=== PATIENT | female | born 1960 | race African-American/Black ===

== ENCOUNTER 2016-10-24 13:56 | Inpatient (IN) ==
--- NOTE | 2016-10-24 17:20 | Diag Imaging Result Document ---
PROCEDURE NAME: CHEST-2 VIEWS - 10/24/2016 FRONTAL AND LATERAL CHEST, TWO VIEWS: COMPARISON: 08/26/2015. FINDINGS: The lungs are well expanded. The heart is mildly enlarged. This is similar to the prior exam. The vessels are not distended. No pleural effusion. No pneumonia. IMPRESSION: Mild cardiomegaly.
--- NOTE | 2016-10-24 17:21 | Diag Imaging Result Document ---
PROCEDURE NAME: KUB ABDOMEN - 10/24/2016 SUPINE ABDOMEN: FINDINGS: No bowel obstruction. No organomegaly. There has been prior surgery to the lower lumbar spine. There is a left pelvic calcification consistent with a phlebolith. IMPRESSION: Negative exam.
[2016-10-24 17:23] LABS: MANUAL DIFF NEEDED? NO
[2016-10-24 17:25] LABS: BASO% 0.6 % (0.0-0.8); EOS# 0.13 X1000 (0.0-0.7); EOS% 1.1 % (0.0-10.0); HEMATOCRIT 34.5 % (37.0-47.0); HEMOGLOBIN 11.3 g/dL (12.0-16.0); IMM GRAN# 0.04 X1000 (0.0-0.04); IMM GRAN% 0.3 % (0.0-0.5); LYMPH# 3.85 X1000 (1.2-3.4); LYMPH% 32.7 % (20.5-51.1); MCHC 32.8 g/dL (33-37); MCV 88.5 FL (81-99); MONO# 0.87 X1000 (0.11-0.59); MONO% 7.4 % (1.7-9.3); MPV 8.5 FL (7.4-10.4); NEUT% 57.9 % (42.2-75.2); PLT 515 X1000 (130-400)
[2016-10-24] MEDS: PROTONIX IV SCH (17:33)
[2016-10-24] MEDS: NS 1,000 ML IV SCH (17:33)
[2016-10-24] MEDS: NICODERM PATCH TD SCH (17:33)
[2016-10-24] MEDS: SODIUM CHLORIDE 0.9% INJ SCH (17:34)
[2016-10-24 17:36] LABS: INR 0.99; PROTIME 10.4 Seconds (9.2-11.7); PTT 29.4 Seconds (22.0-36.0)
[2016-10-24 17:45] LABS: HEMOGLOBIN A1C 6.6 % (4.8-6.0)
[2016-10-24 18:04] LABS: ALBUMIN 3.9 g/dL (3.5-5.0); CALCIUM 9.4 mg/dL (8.8-10.2); POTASSIUM 4.6 mmol/L (3.5-5.1); TOTAL BILIRUBIN 0.13 mg/dL (0.20-1.00); TOTAL PROTEIN 7.8 g/dL (6.3-8.3)
--- NOTE | 2016-10-24 18:58 | HISTORY AND PHYSICAL ---
CHIEF COMPLAINT: Abdominal pain, nausea, vomiting and diarrhea. HISTORY OF PRESENT ILLNESS: Ms. Morataya is a 56-year-old, patient who was in her usual state of health until Thursday when patient got sick complaining of abdominal discomfort, nausea, vomiting and diarrhea. The patient claims she vomited multiple times. Every time she tries to eat or drink she was throwing up. She was not able to tolerate her medications. The patient was feeling weak, at times dizzy. The patient did have diarrhea multiple times. No blood or mucus in the stool. No hematemesis or melena. The patient lost significant weight. I evaluated patient in my office. Clinically patient was dehydrated. She lost significant weight. I was concerned about acute renal failure and I decided to admit the patient for further care. Initially patient was reluctant but then she agreed to be admitted. Nobody else in the family is sick with a similar illness. The patient had mild renal insufficiency six weeks ago. I advised her to come for a followup in 10 days but patient did not. The patient is noncompliant to diet and medication. The patient did have chills but no high-grade fever. She does have a dull headache. No typical chest pain, palpitations, orthopnea or PND. Vague abdominal discomfort. No dysphagia or odynophagia. Denied urinary frequency, urgency, dysuria. No vaginal discharge, spotting, bleeding. Denied any leg swelling. The patient does have chronic low back pain being followed up by pain clinic. The patient claims she did not run out of her pain medication. No major depression. No heat or cold intolerance. At times polyuria, polydipsia. No further history available at this time. Claims to be under stress. ALLERGIES: No known drug allergy. HOME MEDICATIONS: Lotrel, Lipitor, Invokana, Klonopin, Flexeril, Neurontin, [place]. It is not updated yet. PAST MEDICAL HISTORY: Longstanding diabetes on insulin, hypertension, hyperlipidemia, gastritis, chronic low back pain, muscle spasm. PERSONAL HISTORY: . Lives with the . The patient does smoke. Denied alcohol or substance abuse. FAMILY HISTORY: Father of a mass behind his heart. Mother with stroke and hypertension. The patient has a strong family history of hypertension. REVIEW OF SYSTEMS: As per HPI. Otherwise unobtainable. PHYSICAL EXAMINATION: GENERAL: Middle-aged, patient, in mild distress. The rest is from the chart. VITAL SIGNS: Blood pressure 124/74, pulse 54, respiration 14, temperature 98.4 degrees. SKIN: Dry turgor. No rash or petechiae. HEENT: Head atraumatic, normocephalic. [place] conjunctivae. Anicteric sclerae. Extraocular muscle movement normal. Fundus cannot be penetrated. Good oral hygiene. No tonsillopharyngeal congestion or exudate. Ears and nose benign. NECK: Supple. No JVD, thyromegaly or lymphadenopathy. CHEST: Bilateral good air entry present. Few basal crepitations. No rales. CARDIOVASCULAR: S1 and S2 heard. No gallop or thrill. ABDOMEN: Soft, globular. Bowel sounds present. No organomegaly or mass. EXTREMITIES: No cyanosis, clubbing. No acute DVT. CENTRAL NERVOUS SYSTEM: Alert, awake, able to move all 4 limbs. Tenderness at the lumbosacral spine. LAB DATA: Sodium 135, potassium 4.6, BUN 46, creatinine 2.7. Hemoglobin A1c 6.6, amylase and lipase were normal, PT and PTT normal, CBC mild leukocytosis, platelet count 515,000, hemoglobin 11.3, hematocrit 34.5. CONSIDERATION: 1. Acute gastroenteritis. 2. Acute kidney injury. 3. Diabetes mellitus. 4. Hypertension. 5. Chronic low back pain. PLAN: We are going to do stool workup. Urinalysis result is pending. Close observation. IV hydration. Overall plan discussed at length with the patient. She is in agreement. Smoking cessation. Monitor blood pressure. We will continue home medicines. Dr. Mason will see the patient over the weekend. cc: Domenic Ornelas MD
[2016-10-25] MEDS: HUMALOG SUBQ SCH ×5 (01:29→23:10)
[2016-10-25] MEDS: NS 1,000 ML IV SCH ×3 (03:04→17:10)
[2016-10-25 05:41] LABS: MANUAL DIFF NEEDED? NO
[2016-10-25 05:41] LABS: URINE MICRO REVIEW NEEDED? NO; URINE SOURCE CLEAN CATCH
[2016-10-25 05:47] LABS: BILIRUBIN URINE NEGATIVE (NEGATIVE); BLOOD URINE NEGATIVE (NEGATIVE); COLOR STRAW; GLUCOSE URINE NEGATIVE (NEGATIVE); LEUKOCYTES URINE NEGATIVE (NEGATIVE); NITRITE URINE NEGATIVE (NEGATIVE); PH URINE 5.5; PROTEIN URINE 100 mg/dL (NEGATIVE); SP GRAVITY URINE 1.005; TURBIDITY URINE CLEAR (CLEAR); UR EPITHELIAL CELLS <10 /HPF (<10); URINE BACTERIA NEGATIVE /HPF; URINE RBC <10 /HPF (<10); URINE WBC <10 /HPF (<10); UROBILINOGEN URINE NORMAL (NORMAL)
[2016-10-25 05:49] LABS: BASO% 0.6 % (0.0-0.8); EOS# 0.24 X1000 (0.0-0.7); EOS% 2.2 % (0.0-10.0); HEMATOCRIT 35.1 % (37.0-47.0); HEMOGLOBIN 11.5 g/dL (12.0-16.0); IMM GRAN# 0.03 X1000 (0.0-0.04); IMM GRAN% 0.3 % (0.0-0.5); LYMPH% 46.9 % (20.5-51.1); MCHC 32.8 g/dL (33-37); MCV 88.6 FL (81-99); MONO# 0.84 X1000 (0.11-0.59); MONO% 7.7 % (1.7-9.3); MPV 8.9 FL (7.4-10.4); NEUT% 42.3 % (42.2-75.2); PLT 488 X1000 (130-400); RBC 3.96 XMIL (4.2-5.4)
[2016-10-25 06:06] LABS: ALBUMIN 3.8 g/dL (3.5-5.0); CALCIUM 9.4 mg/dL (8.8-10.2); POTASSIUM 4.5 mmol/L (3.5-5.1); TOTAL BILIRUBIN 0.21 mg/dL (0.20-1.00); TOTAL PROTEIN 7.5 g/dL (6.3-8.3)
[2016-10-25] MEDS: NICODERM PATCH TD SCH (09:00)
--- NOTE | 2016-10-25 13:22 | PROGRESS NOTE ---
DATE: 10/25/[address] Ornelas. SUBJECTIVE: Interval history was reviewed. She was admitted yesterday with nausea, vomiting abdominal cramps, diarrhea. She was profoundly dehydrated. Patient has been ambulating very well. Since she has been in the hospital, there are no episodes of diarrhea, nausea and vomiting. She has been on IV fluids 125 mL an hour. She was profoundly dehydrated. PAST MEDICAL HISTORY, PAST SURGICAL HISTORY, MEDICINES: Reviewed. OBJECTIVE: Vital Signs: On examination, afebrile. Heart rate is 48, blood pressure is stable on room air satting 100%. General: Patient is out of the bed. Family was there. HEENT: Exam within normal limits. Dry mucous membranes. Neck: Supple. No lymphadenopathy. Chest: Clear to auscultation. Heart: Sounds are regular. Abdomen: Belly is soft, nontender. No signs of peritonitis. Extremities: No peripheral edema, cyanosis. Neurological: No obvious neurological deficits noted. LABS/INVESTIGATIONS: CBC: White cell count 10, hematocrit 35, platelet count 488. SMA 7: Potassium 4.5, chloride 108, BUN 40, creatinine 2.6. LFTs were normal. Urinalysis is clear and stools are pending. ASSESSMENT AND PLAN: 1. Dehydration due to gastroenteritis, stable, awaiting stool studies. 2. Azotemia. Normal baseline creatinine is 1.0. Continue on intravenous fluids. Follow up on basic metabolic panel in the morning. 3. Chronic nicotine abuse. Nicotine patch. 4. Gastrointestinal prophylaxis with Protonix. 5. Type 2 diabetes on Invokana. We will hold the medications until renal function tests come back normal. DISPOSITION: The patient wants to go home. I did discuss that creatinine is still high. Continue the IV fluids. Follow up on orthostatic blood pressure and SMA 7 in the morning. We will continue to hold the home medications, which includes Invokana, metformin, except hydrocodone and we will follow up. Discussed the plan of care with the patient and the family. LEVEL OF CARE: 35 minutes. cc: MD Domenic Delong MD
[2016-10-25] MEDS: NORCO-7.5 PO SCH (17:12)
[2016-10-25] MEDS: PROTONIX IV SCH (17:13)
[2016-10-25] MEDS: SODIUM CHLORIDE 0.9% INJ SCH (17:13)
[2016-10-26] MEDS: NS 1,000 ML IV SCH ×2 (05:34→16:54)
[2016-10-26 05:53] LABS: MANUAL DIFF NEEDED? NO
[2016-10-26 05:59] LABS: BASO% 0.5 % (0.0-0.8); EOS% 2.1 % (0.0-10.0); IMM GRAN# 0.02 X1000 (0.0-0.04); IMM GRAN% 0.2 % (0.0-0.5); LYMPH# 3.41 X1000 (1.2-3.4); LYMPH% 36.4 % (20.5-51.1); MCH 29.8 PG (27-31); MCHC 33.3 g/dL (33-37); MCV 89.3 FL (81-99); MONO% 10.7 % (1.7-9.3); MPV 9.1 FL (7.4-10.4); NEUT% 50.1 % (42.2-75.2); PLT 410 X1000 (130-400); RBC 3.36 XMIL (4.2-5.4)
[2016-10-26 06:17] LABS: CALCIUM 8.5 mg/dL (8.8-10.2); POTASSIUM 4.7 mmol/L (3.5-5.1)
[2016-10-26 06:21] LABS: HEMOGLOBIN A1C 6.5 % (4.8-6.0)
[2016-10-26] MEDS: HUMALOG SUBQ SCH ×3 (06:25→16:11)
[2016-10-26] MEDS: NICODERM PATCH TD SCH (09:40)
[2016-10-26] MEDS: NORCO-7.5 PO SCH ×4 (09:42→17:00)
--- NOTE | 2016-10-26 15:12 | PROGRESS NOTE ---
DATE: 10/26/2016 SUBJECTIVE: Patient is anxious to go home. Ambulating very well without dizziness. REVIEW OF SYSTEMS: No GI symptoms, nausea, vomiting, diarrhea. PHYSICAL EXAMINATION: Vital Signs: Stable. Blood pressure is running high. HEENT: Within normal limits. Neck: Supple. No lymphadenopathy. Chest: Clear. Heart: Sounds are regular. Belly: Soft, nontender. Good bowel sounds. No masses palpable. Extremities: No edema, cyanosis, clubbing. Neuro: Nonfocal. INVESTIGATIONS: CBC white cell count 9.3, hematocrit 30, platelets 410,000. SMA 7 sodium 142, potassium 4.7, chloride 112, BUN 30, creatinine 2.1. A1c 6.5, calcium 8.5. Urinalysis is clear. ASSESSMENT AND PLAN: 1. Gastroenteritis improving. 2. Azotemia prerenal. Continue IV fluids, slowly improving. Advanced the diabetic diet. 3. Chronic nicotine abuse on Nicotrol patches. Once the creatinine comes back normal will reinstate her home medicines. Hopefully will be discharged in the morning. Check the SMA [address] Ornelas is going to follow up. LEVEL OF DOCUMENTATION: 25 minutes. cc: MD Domenic Delong MD
[2016-10-26] MEDS ORDERED: LIPITOR PO SCH (21:00)
[2016-10-26] MEDS: PROTONIX IV SCH (21:43)
[2016-10-26] MEDS: NORVASC PO SCH (21:43)
[2016-10-26] MEDS: KLONOPIN PO SCH (21:44)
[2016-10-27] MEDS: HUMALOG SUBQ SCH ×4 (05:06→16:30)
[2016-10-27] MEDS: NS 1,000 ML IV SCH ×2 (05:06→05:20)
[2016-10-27] MEDS: SODIUM CHLORIDE 0.9% INJ SCH ×2 (05:06→17:03)
[2016-10-27] MEDS: CATAPRES PO PRN ×3 (05:20→09:08)
[2016-10-27 05:37] LABS: MANUAL DIFF NEEDED? NO
[2016-10-27 05:41] LABS: BASO% 0.6 % (0.0-0.8); EOS# 0.24 X1000 (0.0-0.7); EOS% 2.5 % (0.0-10.0); HEMOGLOBIN 11.4 g/dL (12.0-16.0); IMM GRAN# 0.03 X1000 (0.0-0.04); IMM GRAN% 0.3 % (0.0-0.5); LYMPH# 4.01 X1000 (1.2-3.4); MCH 29.6 PG (27-31); MCHC 33.5 g/dL (33-37); MCV 88.3 FL (81-99); MONO# 1.09 X1000 (0.11-0.59); MONO% 11.2 % (1.7-9.3); MPV 9.1 FL (7.4-10.4); NEUT% 44.4 % (42.2-75.2); PLT 447 X1000 (130-400); RBC 3.85 XMIL (4.2-5.4)
[2016-10-27 05:59] LABS: CALCIUM 9.7 mg/dL (8.8-10.2); POTASSIUM 4.1 mmol/L (3.5-5.1)
--- NOTE | 2016-10-27 06:59 | PROGRESS NOTE ---
DATE: 10/27/2016 SUBJECTIVE: Ms. Morataya is doing better. No major headache or chest pain. Her nausea and vomiting are improving. The patient denied any bowel movement since she is in the hospital. No fever or chills. No dysuria or hematuria. Her blood pressure is going up. OBJECTIVE: Vital Signs: Reviewed. Neck: Supple. No JVD. Lungs: Bilateral good air entry present. Cardiovascular: S1 and S2 heard. Abdomen: Soft, globular. Bowel sounds present. Extremities: No cyanosis, clubbing. No acute DVT. Central Nervous System: Alert, awake, able to move all 4 limbs. LABORATORY DATA: The patient's lab data done today, BUN is 22 and creatinine 1.7, which did show improvement. CONSIDERATIONS: The patient seems to have normal anion gap metabolic acidosis. Her blood pressure is high. The patient was on Lotrel at home. I resumed her Norvasc and clonidine. I ordered a renal ultrasound, though her renal kidney injury is most likely due to dehydration. We will make sure there is no evidence of obstructive uropathy. I am going to do a nephrology consult to manage her antihypertensive, especially JAMISON inhibitor because of acute kidney injury and normal anion gap metabolic acidosis could be due to type 4 renal tubular acidosis. Other problems includes diabetes mellitus, hypertension, hyperlipidemia. I resumed her Lipitor. Chronic back pain. PLAN: The overall plan was discussed with the patient. If clinical condition permits, I am planning to discharge her home this evening. cc: Domenic Ornelas MD
[2016-10-27] MEDS: KLONOPIN PO SCH (09:06)
[2016-10-27] MEDS: NORCO-7.5 PO SCH ×3 (09:06→17:02)
[2016-10-27] MEDS: NICODERM PATCH TD SCH (09:09)
[2016-10-27] MEDS: NORVASC PO SCH (09:09)
[2016-10-27] MEDS: CATAPRES PO SCH ×2 (09:09→13:56)
--- NOTE | 2016-10-27 13:57 | CONSULTATION ---
DATE OF CONSULTATION: 10/27/2016 REASON FOR ADMISSION: Abdominal pain associated with nausea, vomiting, and diarrhea. REASON FOR CONSULTATION: Acute kidney injury on possible chronic kidney disease stage 3. CONSULTING PHYSICIAN: Domenic Ornelas MD HISTORY OF PRESENT ILLNESS: Ms. Morataya is a 56-year-old female who has not been seen by our practice in the past. She stated that approximately 6 months ago she was told by Dr. Ornelas that she has an elevated number for her kidneys in her labs, and he was going to continue to monitor them. Unfortunately, the patient had gotten sick with nausea, vomiting, and diarrhea. Due to this, she was unable to tolerate her medication. She continued to feel weak and was dizzy. She stated that this had gone on for approximately 5 days. She had lost weight. The patient became dehydrated. After talking with Dr. Ornelas, she agreed to hospitalization, at which time she continues with IV fluids of normal saline at 125 mL an hour. The patient denies any fever or chills. She does state that she has an occasional headache. No chest pain, no palpitations, and no increased work of breathing. Vague abdominal discomfort secondary to nausea and vomiting. She denies any increased lower extremity swelling. She does have chronic back pain and is followed at the [facility]. Subsequently, the patient's BUN and creatinine have been elevated during this hospitalization. Due to a previous history of renal insufficiency, we have been consulted to assist with medical management and to follow up after discharge. The patient's creatinine was as high as 2.7 initially; it is now down to 1.7 with IV fluids. She is now eating. She has no complaints of nausea. SOCIAL HISTORY: The patient is . She lives with her spouse. She has children who are attentive to her care. She has recently quit smoking in the last 1 to 2 weeks. She denies any alcohol or illicit drug use. She does attend the [facility]. 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 PREVIOUS SURGICAL HISTORY: The patient states that she has had an aneurysm repair. She has had stomach scopes. She continues to state that she has had repair done to a knee. FAMILY HISTORY: Father of a heart attack. Mother has a stroke and hypertension with a previous SC. She states that she has had 3 aunts who have from aneurysms of the brain. She has a sister with a history of hypertension. ALLERGIES: No known drug allergies. HOME MEDICATIONS: Her home medications are Lotrel, Lipitor, Invokana, Klonopin , Flexeril, Neurontin, and [place]. VITAL SIGNS: Her most recent vital signs, her temperature is 98.4 degrees, blood pressure 204/88, heart rate 63, respirations are 20. She is currently on room air. Last recorded saturation is 99%. She has had 2424 in and 2790 out per void plus she states that she has already filled her hat on the toilet this morning. DIAGNOSTIC DATA: Her labs this a.m., sodium 145, potassium 4.1, chloride 114, CO2 of 17, BUN 22, creatinine 1.7, glucose 99, anion gap 14, calcium is 9.7. White count 9.77, hemoglobin 11.4, hematocrit 34, with a platelet count of 447,000. The patient's initial chest x-ray upon admission indicated mild cardiomegaly. The patient's abdominal x-ray upon admission indicated a negative exam for obstruction. The patient has a renal ultrasound this a.m. pending. PHYSICAL EXAMINATION: General: This is a 56-year-old female. She is resting on the side of the bed. She is in no acute distress. Skin: Warm and dry. HEENT : Normocephalic, atraumatic. Conjunctivae pink. She has [place]. Mucous membranes are moist. Neck: Supple. Trachea midline. No JVD. Cardiovascular: She is regular rate and rhythm. She is without murmur or gallop. Lungs: Clear to auscultation anteriorly. Equal excursion on room air. Abdomen: Large, round, soft, nontender. Positive bowel sounds. Extremities: Have no edema. No clubbing or cyanosis. Genitourinary: The patient is getting up and walking to the bathroom and able to void, adequate amounts recorded. Neurological: She is alert and oriented x3. ASSESSMENT AND PLAN: 1. Acute kidney injury on chronic kidney disease. We will attempt to find the patient's baseline creatinine prior to this hospitalization. She is now down to 1.7. We agree with continuing her intravenous fluids. We will check urine electrolytes. 2. Hypertension. Dr. Ornelas already has the patient on Catapres scheduled every 8 hours. He has her on amlodipine. Due to the patient's low heart rate, we will not be able to add a beta- terrie. Due to her dehydration, we will not add a diuretic at this time, and she does have Klonopin p.r.n. as indicated. 3. Electrolytes. These remain stable. 4. Acid-base balance. The patient is acidotic with a CO2 of 17. This has improved from yesterday. We will monitor secondary to the patient just starting to eat with nausea. She appears in no distress. No indications for adding it to her intravenous fluids at this time. I would like to thank you for allowing us to follow with this patient. Seen, data reviewed, discussed with Levi Vega on 10/27/16. I agree with the above assessment and plan of care. rg Dictated by LETY Jarrett for Viral Hebert MD cc: LETY Jarrett MD Bharat K. Vakharia, MD MTDD
--- NOTE | 2016-10-27 14:43 | Diag Imaging Result Document ---
PROCEDURE NAME: US RENAL 2 (RETROPER) COMPLETE - 10/27/2016 BILATERAL RENAL ULTRASOUND: COMPARISON: Ultrasound abdomen of 04/20/2014. FINDINGS: The right kidney measures 11.2 x 5.1 x 4.4 cm in size. The left kidney measures 11 x 5.7 x 6.8 cm in size. There are bilateral renal cysts which measure 1.2 cm on the right and 1.7 cm on the left. There is no solid renal mass identified. The renal cortices appear somewhat echogenic diffusely, which can be seen with medical renal disease, although this may be exaggerated by artifacts from the technical factors. There is no hydronephrosis identified. There is no renal stone identified. Images of the urinary bladder demonstrate no lesion. IMPRESSION: Small bilateral renal cysts. Possible medical renal disease. No evidence of solid renal mass or hydronephrosis.
[2016-10-27 15:34] VITALS: BP 155/77
[2016-10-27] MEDS: PROTONIX IV SCH (17:03)
--- NOTE | 2016-10-28 04:37 | DISCHARGE SUMMARY ---
ADMISSION DATE: 10/24/2016 DISCHARGE DATE: 10/27/2016 FINAL DISCHARGE DIAGNOSES: 1. Acute kidney injury due to dehydration. 2. Gastroenteritis. 3. Hypertension. 4. Diabetes mellitus. 5. Chronic low back pain. 6. Gastritis and reflux disease. 7. Hyperlipidemia. HISTORY OF PRESENT ILLNESS: Ms. Morataya is a 56-year-old patient, admitted with nausea, vomiting, diarrhea of 4-5 days' duration, not able to keep anything by mouth. The patient was feeling weak, clinical dehydration. I evaluated the patient in the office, admitted her for further care. HOSPITAL COURSE: Patient was treated with IV hydration, symptomatic care. Her renal function gradually improved. Nephrology consult obtained with Dr. Hebert. He started doing 24-hour urine for protein and creatinine. I did order a renal ultrasound, and results reviewed. The patient's clinical condition improved. Nausea, vomiting, diarrhea improved. The patient is feeling much better. She is eager to go home. I evaluated her this morning, and again today this evening. I resumed her Norvasc and clonidine, holding her Dyazide and Lotensin because of renal insufficiency. I re-evaluated the patient. The patient is doing much better. She is eager to go home. Discussed with Dr. Hebert, and I am planning to discharge her home today. LABORATORY DATA: Hemoglobin 11.4, hematocrit 34, WBC count 9.77, platelet count 447,000. BUN 22, creatinine 1.7. Admission BUN was 46, creatinine was 2.7. The patient's hemoglobin A1c was 6.6. A renal ultrasound revealed no evidence of hydronephrosis, small bilateral renal cyst, possible medical renal disease. No solid renal mass. DISCHARGE INSTRUCTIONS: Advised patient to quit smoking. Plenty of liquids orally. Avoid anti- inflammatory medicine. Continue her pain medicine. Follow up with me in 3-4 days. Will recheck blood work, monitor blood pressure and Accu-Cheks at home. In case of more distress, call us back or go to the emergency room. DISCHARGE CONDITION: Overall discharge condition satisfactory. cc: Domenic Ornelas MD
== END 2016-10-27 18:32 | disposition home or self-care (01) ==
LOC: DIRADM 13:56 → 4N 13:57
PROVIDERS: ADMIT Internal Medicine; ATTEND Internal Medicine

== ENCOUNTER 2018-12-30 16:38 | Inpatient (IN) ==
[2018-12-30] MEDS ORDERED: NS 1,000 ML IV ONE ×2 (17:08→19:18)
[2018-12-30] MEDS ORDERED: ZOFRAN IV ONE ×2 (17:08→19:49)
[2018-12-30 17:29] LABS: URINE SOURCE CLEAN CATCH
[2018-12-30 17:37] LABS: BILIRUBIN URINE NEGATIVE (NEGATIVE); BLOOD URINE TRACE (NEGATIVE); COLOR YELLOW; GLUCOSE URINE TRACE mg/dL (NEGATIVE); KETONE URINE NEGATIVE (NEGATIVE); LEUKOCYTES URINE NEGATIVE (NEGATIVE); NITRITE URINE NEGATIVE (NEGATIVE); PROTEIN URINE 600 mg/dL (NEGATIVE); SP GRAVITY URINE 1.017; TURBIDITY URINE CLEAR (CLEAR); UROBILINOGEN URINE NORMAL (NORMAL)
[2018-12-30 17:39] LABS: UR EPITHELIAL CELLS <10 /HPF (<10); URINE BACTERIA NEGATIVE /HPF; URINE RBC <10 /HPF (<10); URINE WBC <10 /HPF (<10)
--- NOTE | 2018-12-30 17:57 | Diag Imaging Result Doc PS360 ---
EXAM: FLAT/UPRIGHT ABD/1 VIEW CHEST 12/30/2018 HISTORY: abd pain TECHNIQUE: Flat and upright abdomen with PA chest COMMENT: The stomach and small bowel are not distended. There is a fair amount of stool in the right colon. There is no evidence organomegaly or mass. There are postsurgical changes at L4-5. There is some fibrosis present in the lower mid left lung which has not changed significantly since 05/31/2017. IMPRESSION: Constipation. Otherwise nonspecific abdomen. Stable chest. Electronically signed by Zev Gill 12/30/2018 5:55 PM
[2018-12-30 18:08] LABS: BASO# 0.04 X1000 (0.0-0.2); BASO% 0.2 % (0.0-0.8); EOS# 0.03 X1000 (0.0-0.7); EOS% 0.1 % (0.0-10.0); HEMATOCRIT 34.9 % (37.0-47.0); HEMOGLOBIN 11.5 g/dL (12.0-16.0); IMM GRAN# 0.13 X1000 (0.0-0.04); IMM GRAN% 0.6 % (0.0-0.5); LYMPH# 2.09 X1000 (1.2-3.4); LYMPH% 9.1 % (20.5-51.1); MCH 29.6 PG (27-31); MCV 89.9 FL (81-99); MONO# 1.78 X1000 (0.11-0.59); MONO% 7.7 % (1.7-9.3); MPV 9.3 FL (7.4-10.4); NEUT# 18.94 X1000 (1.4-6.5); NEUT% 82.3 % (42.2-75.2); PLT 482 X1000 (130-400); RBC 3.88 XMIL (4.2-5.4); RDW 14.8 % (11.5-14.5); WBC 23.01 X1000 (4.8-10.8)
[2018-12-30 18:34] LABS: AGAP 16; ALB/GLOB RATIO 0.9; ALBUMIN 3.5 g/dL (3.5-5.0); ALKALINE PHOSPHATASE 131 U/L (32-104); BUN 77 mg/dL (8-22); CALCIUM 8.7 mg/dL (8.8-10.2); CHLORIDE 106 mmol/L (98-107); CK PROFILE 97 U/L (24-173); COSMO 297; CREATININE 7.7 mg/dL (0.5-0.9); ESTIMATED GFR 7; GLUCOSE 139 mg/dL (70-104); GOT 7 U/L (10-30); GPT 5 U/L (10-36); LIPASE 35 U/L (13-60); POTASSIUM 5.5 mmol/L (3.5-5.1); SODIUM 136 mmol/L (136-145); TCO2 14 mmol/L (25-35); TOTAL PROTEIN 7.5 g/dL (6.3-8.3)
[2018-12-30 18:35] LABS: ACETONE SERUM NEGATIVE (NEGATIVE)
[2018-12-30] MEDS ORDERED: ROCEPHIN 1 GM in NS 50 ML IV ONE (18:42)
--- NOTE | 2018-12-30 19:21 | PROVIDER DOCUMENTATION ---
This chart was entered by Susan Gunter Scribe, acting as scribe for Beckie Ralph CRNP. HPI-Abdominal Pain/GI Problem - General Chief Complaint: N/V/D Stated Complaint: VIRUS Time Seen by Provider: 12/30/18 16:56 Source: patient Allergies/Adverse Reactions: Patient Allergies Allergy/AdvReac Type Severity Reaction Status Date / Time No Known Allergies Allergy Verified 12/30/18 17:11 Home Medications: Home Medication List Medication Instructions Recorded Confirmed Last Taken Type Clonazepam [Klonopin] 0.5 mg PO BID 08/26/15 12/30/18 12/30/18 History Gabapentin [Neurontin] 800 mg PO 4XDAY 08/26/15 12/30/18 12/30/18 History Amlodipine [Norvasc] 10 mg PO DAILY tablet 10/27/16 12/30/18 12/30/18 Rx Clonidine [Catapres] 0.2 mg PO 0800,1400,2100 tablet 10/27/16 12/30/18 12/30/18 Rx Diphenhydramine HCl 1 cap PO QHS PRN 12/30/18 12/30/18 12/29/18 History Hydralazine [Apresoline] 1 tab PO 4XDAY 12/30/18 12/30/18 12/30/18 History Hydrocodone/Acetaminophen 1 tab PO 4XDAY PRN 12/30/18 12/30/18 12/30/18 History [Hydrocodone-Acetamin 7.5-325] Metoprolol Tartrate 1 tab PO BID 12/30/18 12/30/18 12/30/18 History Triamterene/Hydrochlorothiazid 1 cap PO DAILY 12/30/18 12/30/18 12/30/18 History [Dyazide 37.5-25 Capsule] - History of Present Illness-ABD Nature of Presenting Problems: 58 y/o female presents to ED with worsening abdominal pain, N/V/D, and weakness onset 4 days ago. Pt is alert and oriented. Abdominal Pain Onset Location: reports: generalized abdomen Pain Radiation: reports: no radiation Quality of Pain: reports: aching Severity in ED: reports: moderate Onset/Duration: reports: 4 days ago Timing: reports: still present, getting worse Activities at Onset: reports: none Exposure to sick contacts?: No Modifying Factors: worse with: palpation Associated Symptoms: reports: diarrhea, nausea, vomiting, weakness, other (abdominal pain) Last BM: this afternoon Dark Stools Present?: reports: none noticed Rectal Bleeding: reports: none Rectal Pain: reports: none Similar Symptoms Previously?: No Recently seen or treated by another doctor?: No Review of Systems - Adult - REVIEW OF SYSTEMS - ADULT Constitutional: denies: chills, fever Eyes: reports: no symptoms reported Ears, Nose, Mouth & Throat: reports: no symptoms reported Cardiovascular: denies: chest pain, palpitations Respiratory: denies: cough, shortness of breath Gastrointestinal: reports: abdominal pain, diarrhea, nausea, vomiting Genitourinary: reports: no symptoms reported Musculoskeletal: denies: back pain, joint pain Integumentary: reports: no symptoms reported Neurological: reports: other (weakness). denies: dizziness/vertigo, seizure Psychiatric: reports: no symptoms reported Endocrine: reports: no symptoms reported Hematologic/Lymphatic: reports: no symptoms reported Allergic/Immunologic: reports: no symptoms reported All Other Systems: Reviewed and Negative Past History - Adult - PAST MEDICAL HISTORY-ADULT Review of Records: reports: Old Records Reviewed, Nursing Assessment Review, Medications Reviewed Major Childhood Illnesses: reports: denies history Cardiovascular: reports: HTN Gastrointestinal: reports: denies history Musculoskeletal: reports: arthritis, chronic pain, other (neuropathy) Neurological: reports: CVA, other (brain aneurysm) Psychiatric: reports: anxiety Endocrine/Immune: reports: Diabetes - PRIOR SURGERIES/PROCEDURES Surgical/Procedure History: reports: hysterectomy, orthopedic (extremity) (R ankle), breast (reduction), back/neck, other (brain aneurysm) - IMMUNIZATION STATUS Childhood Immunizations: See Nurse Assessment Flu Vaccine: See Nurse Assessment - FAMILY HISTORY Family History: reviewed, not pertinent - SOCIAL HISTORY Smoking: greater than 1 pack/day Provider spent 3-5 mins advising pt. on dangers of tobacco.: Discussed manners to quit use, and f/u contacts for add'l counseling. Substance Use: none/never Alcohol Use Frequency: never Living Situation: family Physical Exam-General - PHYSICAL EXAM-ADULT Initial Vital Signs Reviewed: Yes - CONSTITUTIONAL General Appearance: appears well, alert, no apparent distress - EYES Eyes: PERRL/EOMI, pink conjunctivae - HEAD, EARS, NOSE, MOUTH & THROAT HENMT: normocephalic/atraumatic, moist mucous membranes, normal ENT inspection - NECK Neck: non-tender, full range of motion - RESPIRATORY Respiratory: chest non-tender, lungs clear, normal breath sounds - CARDIOVASCULAR Cardiovascular: normal peripheral pulses, regular rate, rhythm - GASTROINTESTINAL (ABDOMEN) Abdominal Exam: soft, abnormal bowel sounds (hypoactive), tenderness (diffuse; mild). negative: normal bowel sounds - MUSCULOSKELETAL Back Exam: normal inspection, no CVA tenderness, no vertebral tenderness Extremity: normal range of motion, non-tender, normal gait - SKIN Integumentary: normal color, warm/dry - NEUROLOGIC Neurologic: grossly normal - PSYCHIATRIC Psych/Mental Status: normal mood/affect, normal thought content, normal thought process, oriented x 3 Progress - PLAN OF CARE/RESULTS Progress/Plan/Lab Results: Vital Signs - 8 hr 12/30/18 16:40 Temperature 98.2 F Pulse Rate 51 L Respiratory Rate 16 Blood Pressure 117/76 O2 Sat by Pulse Oximetry 98 Orders Category Date Time Status Saline Loc NOW Care 12/30/18 17:07 Active FLAT/UPRIGHT ABD/1 VIEW CHEST [RAD] Stat Exams 12/30/18 17:08 Ordered ACETONE SERUM [CHEM] Stat Lab 12/30/18 17:07 Uncollected CBC WITH ELECTRONIC DIFF [HEME] Stat Lab 12/30/18 17:07 Uncollected CK PROFILE [SP CHEM] Stat Lab 12/30/18 17:07 Uncollected COMPREHENSIVE METABOLIC PANEL [CHEM] Stat Lab 12/30/18 17:07 Uncollected LIPASE [CHEM] Stat Lab 12/30/18 17:07 Uncollected URINALYSIS W/POSS RFLX CULT [URINALYSIS] Stat Lab 12/30/18 17:07 Uncollected 0.9% Sodium Chloride Inj [Ns] 1,000 ml Med 12/30/18 17:08 Active IV 999 mls/hr Ondansetron [Zofran] Med 12/30/18 17:08 Discontinued 4 mg IV NOW ONE Laboratory Tests 12/30/18 17:23 Urine Source CLEAN CATCH Laboratory Tests 12/30/18 12/30/18 12/30/18 17:23 17:50 17:50 WBC 23.01 H RBC 3.88 L Hgb 11.5 L Hct 34.9 L MCV 89.9 MCH 29.6 MCHC 33.0 RDW Std Deviation 14.8 H Plt Count 482 H MPV 9.3 Immature Gran % (Auto) 0.6 H Neut % (Auto) 82.3 H Lymph % (Auto) 9.1 L [place] % (Auto) 7.7 Eos % (Auto) 0.1 Baso % (Auto) 0.2 Immature Gran # (Auto) 0.13 H Neut # (Auto) 18.94 H Lymph # (Auto) 2.09 [place] # (Auto) 1.78 H Eos # (Auto) 0.03 Baso # (Auto) 0.04 Sodium 136 Potassium 5.5 H Chloride 106 Carbon Dioxide 14 L Anion Gap 16 BUN 77 H Creatinine 7.7 H Estimated GFR/1.73 m2 7 BUN/Creatinine Ratio 10 Glucose 139 H Calculated Osmolality 297 Calcium 8.7 L Total Bilirubin 0.30 AST 7 L ALT 5 L Alkaline Phosphatase 131 H Creatine Kinase 97 Total Protein 7.5 Albumin 3.5 Globulin 4.0 Albumin/Globulin Ratio 0.9 Lipase 35 Plasma Lactate Urine Source CLEAN CATCH Urine Color YELLOW Urine Turbidity CLEAR Urine pH 6.0 Ur Specific [place] 1.017 Urine Protein 600 A Ur Glucose (Stick) TRACE Ur Ketones (Stick) NEGATIVE Urine Blood TRACE A Urine Nitrite NEGATIVE Urine Bilirubin NEGATIVE Urobilinogen Dipstick NORMAL Urine Leukocytes NEGATIVE Urine WBC (Auto) <10 Urine RBC (Auto) <10 U Epithel Cells (Auto) <10 Urine Bacteria (Auto) NEGATIVE Acetone Level NEGATIVE 12/30/18 17:50 WBC RBC Hgb Hct MCV MCH MCHC RDW Std Deviation Plt Count MPV Immature Gran % (Auto) Neut % (Auto) Lymph % (Auto) [place] % (Auto) Eos % (Auto) Baso % (Auto) Immature Gran # (Auto) Neut # (Auto) Lymph # (Auto) [place] # (Auto) Eos # (Auto) Baso # (Auto) Sodium Potassium Chloride Carbon Dioxide Anion Gap BUN Creatinine Estimated GFR/1.73 m2 BUN/Creatinine Ratio Glucose Calculated Osmolality Calcium Total Bilirubin AST ALT Alkaline Phosphatase Creatine Kinase Total Protein Albumin Globulin Albumin/Globulin Ratio Lipase Plasma Lactate 1.3 Urine Source Urine Color Urine Turbidity Urine pH Ur Specific [place] Urine Protein Ur Glucose (Stick) Ur Ketones (Stick) Urine Blood Urine Nitrite Urine Bilirubin Urobilinogen Dipstick Urine Leukocytes Urine WBC (Auto) Urine RBC (Auto) U Epithel Cells (Auto) Urine Bacteria (Auto) Acetone Level Discussed results and plan of care with patient. Patient agree with plan and verbalizes understanding. Result Diagrams: 12/30/18 17:50 12/30/18 17:50 - XRAY 1 XRAY Study: Chest, Abdomen Impression: See EMR Report ([facility] - [address], [address], [place] [address] [facility] - [address] [place] [address] Department of Imaging Patient: KATHERINE IBANEZ CAD Date: 12/30/18#: [id number] : 1960DM Status: REG [facility]#: [id number] Age/Sex: 58/FRoom/Bed: Loc: ED Ordering Physician: Beckie Ralph Family Physician: Dickson Lassiter MD Reason for Procedure: abd pain Signed EXAM: FLAT/UPRIGHT ABD/1 VIEW CHEST 12/30/2018 HISTORY: abd pain TECHNIQUE: Flat and upright abdomen with PA chest COMMENT: The stomach and small bowel are not distended. There is a fair amount of stool in the right colon. There is no evidence organomegaly or mass. There are postsurgical changes at L4-5. There is some fibrosis present in the lower mid left lung which has not changed significantly since 05/31/2017. IMPRESSION: Constipation. Otherwise nonspecific abdomen. Stable chest. Electronically signed by Zev Gill 12/30/2018 5:55 PM 12/30/181754 Interpreting Physician: Zev Gill MD Dictated Date/Time: 12/30/181753 cc: Beckie Ralph; Dickson Lassiter MD) - CONSULTS/PCP/HOSPITALIST Notification #1 *Consult/PCP/Hospitalist*: Dr. Marquez Time Discussed: 19:43 Reason/Comments: Admit Consult Disposition: Will see in ED, Admit Departure - Departure Date of Disposition Decision: 12/30/18 Time of Disposition Decision: 19:22 DIAGNOSIS: Hyperkalemia, Hyperglycemia Acute renal failure Qualifiers: Acute renal failure type: unspecified Qualified Code(s): N17.9 - Acute kidney failure, unspecified Leukocytosis Qualifiers: Leukocytosis type: unspecified Qualified Code(s): D72.829 - Elevated white blood cell count, unspecified Disposition: ADMITTED INPATIENT 09 Certified Medical Emergency: Emergent Condition: Stable Referrals and Follow-Ups: Dickson Lassiter MD [Primary Care Provider] - - Critical Care Note This patient required my direct & personal management of CC.: No Attestation - Physician/ OSMEL Attestation Patient care was provided by Advanced Practice Provider:: Yes Advanced Practice Provider:: Beckie Ralph Advanced Practice Provider documentation review:: The Mid-level provider documentation, treatment plan and medical decision making was reviewed by the physician who agrees with all treatment and medical decision making by the MLP. The physician spent face to face time with patient:: No Advanced Practice Provider documentation review:: Supervising physician onsite and consulted in the evaluation and care of this patient. The physician did not have a face to face encounter with the patient. This chart was documented by the indicated scribe, (Susan Gunter, [place]) and accurately reflects the services I performed and decisions made by , Beckie Ralph CRNP, as attested by the provider's signature.
[2018-12-30] MEDS ORDERED: ZOFRAN ONE (19:53)
--- NOTE | 2018-12-30 21:41 | HISTORY AND PHYSICAL ---
PRIMARY CARE PHYSICIAN: Dr. Lassiter. CHIEF COMPLAINT: Nausea, vomiting, diarrhea x4 days. HISTORY OF PRESENTING ILLNESS: A 58-year-old female with a history of hypertension, brain aneurysm, hyperlipidemia, diabetes mellitus type 2 on diet control who presented to emergency department with 4 days history of having intractable nausea, vomiting. She states that she was having occasionally bouts where she had some loose stools also. The patient states the symptoms were worsening and subsequently she had come to the emergency department. In the ED she was evaluated. She had laboratories drawn that showed that she was in renal failure with a creatinine of 7.7. Due to these findings, she will require admission for further management. At the time of my examination, she denied any headache, fever, chills, chest pain, shortness of breath, hemoptysis but complained nausea, vomiting and diarrhea and not feeling well. PAST MEDICAL HISTORY: Includes hypertension, brain aneurysm, hyperlipidemia and diabetes mellitus type 2. PAST SURGICAL HISTORY: Brain aneurysm clipping, and back surgery. ALLERGIES: No known drug allergies. CURRENT MEDICATIONS: Amlodipine 10 mg p.o. daily, clonazepam 0.5 mg p.o. b.i.d., clonidine 0.2 mg p.o. t.i.d., Neurontin 800 mg p.o. q.i.d., hydralazine 50 mg p.o. q.i.d., [place] 7.5 mg p.o. q.i.d., metoprolol 100 mg p.o. b.i.d., Dyazide 37.5/25 1 p.o. daily. SOCIAL HISTORY: A 40 pack year history of smoking. Denies any history of alcohol or illicit drug use. FAMILY HISTORY: Positive for coronary disease in mother. REVIEW OF SYSTEMS: Fourteen point review of system is as HPI. Other systems negative. PHYSICAL EXAMINATION: GENERAL: Cooperative, friendly female she is resting comfortably now. VITAL SIGNS: Temperature 98.2 degrees, pulse 51, respirations 16, blood pressure 117/76. HEENT: Atraumatic, normocephalic. Extraocular movements intact. NECK: No masses. CHEST: Clear to auscultation. CARDIOVASCULAR: Regular rate and rhythm. ABDOMEN: Soft. Positive bowel sounds. EXTREMITIES: No edema. NEUROLOGIC: She is awake, alert, oriented x3. : No bladder distention. SKIN: Warm. LABORATORIES AND STUDIES: Sodium 136, potassium 5.5, chloride 106, CO2 is 14, BUN is 77, creatinine 7.7, glucose is 139. WBCs 23.01, hemoglobin 11.5, hematocrit 34.9, platelets 482,000. Urine is negative for leukocytes or bacteria. Abdominal x-ray shows constipation. ASSESSMENT: A 58-year-old female with a history of hypertension, brain aneurysm, hyperlipidemia and diabetes mellitus type 2, who had presented to the emergency department with 4 days history of intractable nausea, vomiting, and loose stools. She was evaluated in the emergency department and due to her presenting symptoms, she will need admission for further management. ASSESSMENT: 1. Intractable nausea, vomiting and diarrhea. 2. Acute kidney injury. 3. Leukocytosis. 4. Hypertension. 5. Diabetes mellitus type 2. PLAN: 1. We will admit patient to medical floor with telemetry. 2. We will start patient on IV fluids and antiemetics as needed. 3. We will check stool studies. 4. We will check blood cultures. 5. The patient was started on empiric antibiotics in the emergency department. 6. Monitor renal function closely. 7. We will monitor blood pressure. Resume antihypertensive agent. 8. We will monitor blood glucose and put patient on sliding scale insulin regimen. 9. We will put patient on deep vein thrombosis prophylaxis with sequential compression devices. 10. We will continue to follow and reassess. Make further recommendation based on patient's clinical course. cc: Mele Marquez MD
[2018-12-30] MEDS: NORCO-7.5 PO PRN (22:58)
[2018-12-30] MEDS: NS 1,000 ML IV SCH (23:33)
[2018-12-31 06:46] LABS: HEMATOCRIT 31.9 % (37.0-47.0); HEMOGLOBIN 10.2 g/dL (12.0-16.0); MCH 30.2 PG (27-31); MCV 94.4 FL (81-99); MPV 9.2 FL (7.4-10.4); RBC 3.38 XMIL (4.2-5.4); RDW 15.2 % (11.5-14.5); WBC 19.94 X1000 (4.8-10.8)
[2018-12-31 07:14] LABS: CALCIUM 7.7 mg/dL (8.8-10.2); CREATININE 6.5 mg/dL (0.5-0.9); POTASSIUM 5.1 mmol/L (3.5-5.1)
[2018-12-31] MEDS: NS 1,000 ML IV SCH (07:32)
--- NOTE | 2018-12-31 07:35 | EKG Report ---
Test Performed on : 12/30/2018 7:44:05 PM Test Reason : elevated k Blood Pressure : / mmHG Vent. Rate : 067 BPM Atrial Rate : 067 BPM P-R Int : 180 ms QRS Dur : 092 ms QT Int : 444 ms P-R-T Axes : 053 016 033 degrees QTc Int : 469 ms Normal sinus rhythm. Cannot rule out Anterior infarct , age undetermined Abnormal ECG When compared with ECG of 15-APR-2016 21:06, No significant change was found Unconfirmed Result
[2018-12-31] MEDS: ZOFRAN IV PRN (10:04)
[2018-12-31] MEDS: KLONOPIN PO SCH ×2 (10:05→22:10)
[2018-12-31] MEDS: NORVASC PO SCH (10:05)
[2018-12-31] MEDS: LOPRESSOR PO SCH ×2 (10:05→22:09)
[2018-12-31] MEDS: APRESOLINE PO SCH ×4 (10:05→22:10)
[2018-12-31] MEDS: NORCO-7.5 PO PRN ×2 (10:06→21:13)
[2018-12-31] MEDS: CATAPRES PO SCH ×3 (10:06→22:09)
[2018-12-31] MEDS: NEURONTIN PO SCH ×4 (10:06→22:10)
[2018-12-31] MEDS: ROCEPHIN 1 GM in NS 50 ML IV SCH (10:17)
--- NOTE | 2018-12-31 11:22 | PROGRESS NOTE ---
DATE: 12/31/2018 SUBJECTIVE: Ms. Morataya came to the emergency room yesterday with persistent severe nausea, vomiting and diarrhea. OBJECTIVE: Her white count was up and it is still up. Hemoglobin is 10.2. Her BUN and creatinine have been extremely high, BUN 68, creatinine 6.5. She has longstanding uncontrolled hypertension and I think this is the result of the uncontrolled hypertension with renal injury. We will get a consultation with Dr. Hebert. Her plain abdominal x-ray showed some constipation. Otherwise, it was a nonspecific abdomen. PLAN: We are going to do the CT scan to rule out gallbladder stones or other problems. We will continue with the current management. cc: Dickson Lassiter MD
--- NOTE | 2018-12-31 13:12 | NEPHROLOGY CONSULTATION ---
DATE: 12/31/2018 REASON FOR CONSULTATION: Acute kidney injury overlying chronic kidney disease. HISTORY OF PRESENT ILLNESS: Ms. Morataya is a 58-year-old white female with hypertension, diabetes, hyperlipidemia, history of cerebral aneurysm. She began being ill on Thursday with nausea, vomiting and diarrhea. Despite this, she has continued to take her routine medications which included diuretics. Over that time, she had progressive symptoms that were not improving, and so she sought attention in the emergency room. Her initial evaluation in the ER found blood pressure 117/76 with heart rate of 51, and laboratory data disclosed creatinine of 7.7, so she was admitted to the hospital. She has been receiving IV fluids, though the totals are not documented yet. She is on normal saline at 125 an hour. She received at least 2 L IV fluid bolus in the emergency room. In this context, urine output is minimal by documentation, but she states she has been making urine adequately. No shortness of breath, nausea or vomiting at this time. No vomiting since admission. PAST MEDICAL HISTORY: As above. HOME MEDICATIONS: Hydrochlorothiazide, clonidine, amlodipine, clonazepam, gabapentin, metoprolol, hydralazine, diphenhydramine, triamterene, hydrocodone. ALLERGIES: None. SOCIAL HISTORY: She is and lives with her family. No alcohol or tobacco. FAMILY HISTORY: Otherwise noncontributory. REVIEW OF SYSTEMS: Otherwise noncontributory. PHYSICAL EXAMINATION: Blood pressure is 121/57, heart rate 51, respirations 18, afebrile. General: Middle-aged woman in no acute distress. Pleasant, interactive. Skin is warm and dry. Conjunctivae are pink. Pupils are equal. Oropharynx is clear. Normal tongue, normal teeth. Neck is supple. Trachea is midline. No jugular venous distention. PMI nondisplaced. Regular rate and rhythm. No murmurs, rubs or gallops. Lungs have equal excursion, equal breath sounds. No crackles, wheezes, accessory muscle use or retractions. Abdomen is soft, nontender. Bowel sounds present. No organomegaly, masses or bruits. Extremities: No edema, clubbing or cyanosis. IMPRESSION: Acute kidney injury overlying chronic kidney disease. She has heavy proteinuria and baseline creatinine of 2.4. She has been seen in our office in the past but has not followed up in 2 years. Likely she has overlying acute kidney injury secondary to intravascular volume depletion and complicated by moderate metabolic acidosis and hyperkalemia. She seems to be responding to fluids, so we will continue this therapy through the day today and reassess in the morning. cc: MD Dickson Quiles MD
--- NOTE | 2018-12-31 15:17 | Diag Imaging Result Doc PS360 ---
EXAM: CT ABD/PELVIS W/ORAL CONT ONLY 12/31/2018 HISTORY: abd pain,renal failure,leukocytosis TECHNIQUE: This exam was performed using automated exposure control, adjustment of mA or kV according to patient size, and/or use of iterative reconstruction technique. COMMENT: There is a nodule adjacent to the inferior major fissure in the right lower lobe measuring 14 mm which has not changed in size or appearance since 08/26/2015. There is a small hiatal hernia. There is marked bilateral perinephric stranding. There are no definite stones and there is no evidence of hydronephrosis. There are multiple cortical cysts particularly on the left side. There is mucosal thickening in the splenic flexure of the left transverse colon and the descending colon. This is worse than on the previous examination of 08/26/2015. Paracolic inflammatory changes are seen in the fat. There is no evidence of small bowel dilatation or gastric distention. No definite acute abnormalities are present in the liver. There is a dense nodule in the right hepatic lobe which was present in 2016. Pelvis: The urinary bladder is unremarkable. There has been hysterectomy. There is diverticulosis in the sigmoid colon without evidence of active diverticulitis. There are postsurgical changes in the lumbar spine. No evidence of acute bony abnormality is present. There is no evidence of abdominal aortic aneurysm. IMPRESSION: Left-sided colitis. Electronically signed by Zev Gill 12/31/2018 3:15 PM
[2019-01-01] MEDS: NORCO-7.5 PO PRN ×3 (05:06→18:50)
[2019-01-01 06:42] LABS: BASO# 0.06 X1000 (0.0-0.2); BASO% 0.3 % (0.0-0.8); EOS# 0.21 X1000 (0.0-0.7); HEMOGLOBIN 10.3 g/dL (12.0-16.0); IMM GRAN# 0.11 X1000 (0.0-0.04); IMM GRAN% 0.5 % (0.0-0.5); LYMPH# 2.11 X1000 (1.2-3.4); LYMPH% 10.4 % (20.5-51.1); MCH 29.5 PG (27-31); MCHC 32.2 g/dL (33-37); MCV 91.7 FL (81-99); MONO# 1.38 X1000 (0.11-0.59); MONO% 6.8 % (1.7-9.3); MPV 9.1 FL (7.4-10.4); NEUT# 16.46 X1000 (1.4-6.5); PLT 432 X1000 (130-400); RBC 3.49 XMIL (4.2-5.4); WBC 20.33 X1000 (4.8-10.8)
[2019-01-01 07:16] LABS: CALCIUM 7.9 mg/dL (8.8-10.2); POTASSIUM 4.6 mmol/L (3.5-5.1)
[2019-01-01] MEDS: NEURONTIN PO SCH ×4 (08:19→21:59)
[2019-01-01] MEDS: CATAPRES PO SCH ×3 (08:31→21:59)
[2019-01-01] MEDS: NORVASC PO SCH (08:31)
[2019-01-01] MEDS: APRESOLINE PO SCH ×5 (08:31→21:59)
[2019-01-01] MEDS: LOPRESSOR PO SCH ×2 (08:32→21:59)
[2019-01-01] MEDS: KLONOPIN PO SCH ×2 (08:34→21:59)
[2019-01-01] MEDS: ROCEPHIN 1 GM in NS 50 ML IV SCH (08:36)
[2019-01-01] MEDS ORDERED: FLAGYL 250 MG/NS 250 MG/50 ML IVPB IV SCH (11:00)
[2019-01-01] MEDS: FLAGYL 250 MG/NS 250 MG/50 ML IVPB IV SCH ×3 (12:02→23:18)
--- NOTE | 2019-01-01 12:47 | PROGRESS NOTE ---
DATE: 01/01/2019 VITALS: Vital signs stable, with temperature 98.5 degrees, heart rate 54, respirations 20, blood pressure 149/57. O2 saturation on room air 95%. DIAGNOSTIC DATA: Sodium 138, potassium 4.6, BUN 64, creatinine 6.0. Calcium 7.9. Hemoglobin 10.3, hematocrit 32.0, white blood count 20,300 with 81% neutrophils. Blood cultures have revealed no growth at 48 hours. C diff titer was negative. Stool for WBCs showed many on 12/31. CT of her abdomen yesterday revealed diverticulosis in the sigmoid colon with no active diverticulitis. There was mucosal thickening in the splenic flexure of the left transverse colon and descending colon. It was worse than on previous exam 08/26/2015. There was pericolonic inflammatory change in the fat areas. There was no evidence of small-bowel dilation or gastric distention. There was a dense nodule in the right hepatic lobe present in 2016. ASSESSMENT: Her abdominal pain is markedly improved. Diarrhea has improved. Renal function is slightly better. She has underlying renal disease and had seen Dr. Hebert 2 years ago. Baseline is not known. PLAN: Increase diet and activity. Recheck lab tomorrow morning. cc: MD Dickson Duarte MD
--- NOTE | 2019-01-01 13:45 | NEPHROLOGY PROGRESS NOTE ---
DATE: 01/01/2019 SUBJECTIVE: No nausea or vomiting. She is off IV fluids. She is hoping for discharge today. No diarrhea. OBJECTIVE: Vital Signs: Blood pressure 135/56, heart rate 53, respirations 20, and afebrile. General: No acute distress. Skin is warm and dry. HEENT: Conjunctivae are pink. Neck: Neck veins are not distended. Heart: Regular. No gallop. Lungs: Equal. No crackles or wheezes. Abdomen: Soft and nontender. Bowel sounds are present. Extremities: No edema, clubbing, or cyanosis. IMPRESSION: Acute kidney injury. Progressive improvement. Creatinine is 6 today. Her white count remains elevated. She remains somewhat acidotic with a bicarbonate of 13. Anion gap is 15. If she is discharged then she will need labs in the office Thursday or Thursday and we will arrange for this and we will follow her closely at least every 2 weeks. cc: MD Dickson Quiles MD
[2019-01-01] MEDS: NS 1,000 ML IV SCH (19:16)
[2019-01-02] MEDS: NORCO-7.5 PO PRN ×3 (03:46→19:43)
[2019-01-02] MEDS: FLAGYL 250 MG/NS 250 MG/50 ML IVPB IV SCH ×4 (05:17→22:34)
[2019-01-02 06:04] LABS: BASO# 0.04 X1000 (0.0-0.2); BASO% 0.2 % (0.0-0.8); EOS# 0.22 X1000 (0.0-0.7); EOS% 1.4 % (0.0-10.0); HEMATOCRIT 30.1 % (37.0-47.0); HEMOGLOBIN 9.7 g/dL (12.0-16.0); IMM GRAN% 0.6 % (0.0-0.5); LYMPH# 1.58 X1000 (1.2-3.4); LYMPH% 9.7 % (20.5-51.1); MCH 29.6 PG (27-31); MCHC 32.2 g/dL (33-37); MCV 91.8 FL (81-99); MONO# 1.31 X1000 (0.11-0.59); MONO% 8.1 % (1.7-9.3); NEUT# 13.01 X1000 (1.4-6.5); PLT 427 X1000 (130-400); RBC 3.28 XMIL (4.2-5.4); RDW 14.9 % (11.5-14.5); WBC 16.26 X1000 (4.8-10.8)
[2019-01-02 06:37] LABS: CALCIUM 7.7 mg/dL (8.8-10.2); CREATININE 6.2 mg/dL (0.5-0.9); POTASSIUM 4.4 mmol/L (3.5-5.1)
[2019-01-02] MEDS: ZOFRAN IV PRN ×4 (07:48→21:09)
[2019-01-02] MEDS: ROCEPHIN 1 GM in NS 50 ML IV SCH (08:55)
[2019-01-02] MEDS: NEURONTIN PO SCH ×4 (08:55→22:35)
[2019-01-02] MEDS: NORVASC PO SCH (08:55)
[2019-01-02] MEDS: CATAPRES PO SCH ×3 (08:55→22:36)
[2019-01-02] MEDS: KLONOPIN PO SCH ×2 (08:56→22:35)
[2019-01-02] MEDS: APRESOLINE PO SCH ×5 (08:56→22:35)
[2019-01-02] MEDS: LOPRESSOR PO SCH ×2 (08:56→22:35)
[2019-01-02] MEDS: NS 1,000 ML IV SCH (08:57)
--- NOTE | 2019-01-02 09:07 | PROGRESS NOTE ---
DATE: 01/02/2019 VITAL SIGNS: Vital signs stable with temperature 98.5 degrees, heart rate 53, respirations 20, blood pressure 131/60, O2 saturation on room air 100%. LABORATORY: Sodium 136, potassium 4.4, BUN 66, creatinine 6.2, calcium 7.7. Patient states she feels fine. She was nauseated a little this morning. I and O reveals positive balance over the last couple of days of about 1.4 L. Despite this, her BUN and creatinine are about the same. PLAN: Increase IV fluids and recheck BMP tomorrow morning. cc: MD Dickson Duarte MD
[2019-01-02] MEDS: REGLAN IV SCH ×2 (16:28→22:34)
[2019-01-03] MEDS: NS 1,000 ML IV SCH ×2 (00:15→17:09)
[2019-01-03] MEDS: FLAGYL 250 MG/NS 250 MG/50 ML IVPB IV SCH ×4 (05:49→22:47)
[2019-01-03] MEDS: REGLAN IV SCH ×5 (05:50→22:47)
[2019-01-03] MEDS: ZOFRAN IV PRN (05:50)
[2019-01-03 07:15] LABS: CREATININE 6.3 mg/dL (0.5-0.9); POTASSIUM 4.6 mmol/L (3.5-5.1)
[2019-01-03 07:49] LABS: CALCIUM 7.1 mg/dL (8.8-10.2)
[2019-01-03] MEDS: NEURONTIN PO SCH ×4 (08:54→20:50)
[2019-01-03] MEDS: APRESOLINE PO SCH ×4 (08:54→20:50)
[2019-01-03] MEDS: CATAPRES PO SCH ×3 (08:54→20:50)
[2019-01-03] MEDS: LOPRESSOR PO SCH ×2 (08:55→20:49)
[2019-01-03] MEDS: NORVASC PO SCH (08:55)
[2019-01-03] MEDS: ROCEPHIN 1 GM in NS 50 ML IV SCH (08:55)
[2019-01-03] MEDS: KLONOPIN PO SCH ×2 (08:55→20:49)
[2019-01-03] MEDS ORDERED: ZOFRAN ODT PO ONE (09:01)
--- NOTE | 2019-01-03 09:24 | PROGRESS NOTE ---
DATE: 01/03/2019 Ms. Morataya is still very nauseous. She cannot eat. They did mention about gallbladder in her CT scan report. She had a small nodule in the liver and diverticulosis with some colitis. Her BUN and creatinine are still up. Creatinine was around 6.18. It was 6.3 this morning. BUN was 65. She is being followed by Dr. Hebert. I am going to put her on Zofran ODT t.i.d. a.c. and repeat the lab values in the morning. cc: Dickson Lassiter MD
[2019-01-03] MEDS ORDERED: ZOFRAN ODT SL SCH (11:00)
[2019-01-03] MEDS: NORCO-7.5 PO PRN ×2 (14:06→22:48)
--- NOTE | 2019-01-03 15:27 | CONSULTATION ---
DATE OF CONSULTATION: 01/03/2019 HISTORY OF PRESENT ILLNESS: Ms. Tristan Morataya was admitted on the 30 of December. She is a 58-year- old black female who had a 4 day history of intractable nausea and vomiting. Her evaluation suggested renal failure with creatinine of 7.7. She was admitted for further evaluation and I was asked to place access for hemodialysis. PAST MEDICAL HISTORY: Hypertension, brain aneurysm, hyperlipidemia, diabetes mellitus type 2. PAST SURGICAL HISTORY: Brain aneurysm clipping and back surgery. MEDICATIONS: Amlodipine, clonazepam, clonidine, Neurontin, hydralazine, [place], metoprolol, Dyazide. ALLERGIES: No known drug allergies. SOCIAL HISTORY: She does have a 40 pack-year history of smoking. FAMILY HISTORY: Positive for coronary artery disease in her mother. REVIEW OF SYSTEMS: A 14-point review of systems was performed and was essentially negative except for the history of present illness. PHYSICAL EXAMINATION: General: On exam, Ms. Morataya is in no acute distress. She is awake, talking on the phone. She is a middle-aged black female, overweight. HEENT: No jaundice. No oral lesions. Satisfactory dentition. Lymphatic: No cervical or supraclavicular lymphadenopathy. Heart: Regular rate. Lungs: Clear to auscultation and percussion bilaterally. Abdomen: Soft, nontender, without palpable mass. No costovertebral tenderness. Rectal/Vaginal: Exams were not performed. Extremities: She does have palpable femoral pulses. She has no significant peripheral edema. No ischemic ulcers. Neurologic: No focal deficits. IMPRESSION: Renal failure requiring hemodialysis, need for access. PLAN: A PermCath tomorrow. I have discussed the procedure in detail with her. She understands the need for her PermCath we talked about infection and bleeding and malfunctioning PermCath. She wants to proceed. cc: MD Dickson Lopez MD
--- NOTE | 2019-01-03 15:40 | NEPHROLOGY PROGRESS NOTE ---
DATE: 01/03/2019 SUBJECTIVE: Ms. Morataya is resting quietly in bed. She states that she has no complaints of pain or increased work of breathing. She does continue nauseated. No emesis present. OBJECTIVE: Vital signs: Temperature 98.5 degrees, blood pressure 133/65, heart rate 60, respirations 16. She is on room air. Last recorded saturation 93%. She has had 2061 in. Patient states that she has been voiding adequate amounts. This has not been recorded. Laboratory Data: Sodium is 138, potassium 4.6, chloride 111, CO2 13, BUN 65, creatinine 6.3, glucose is 116. The patient's anion gap is 14, her calcium is 7.1. She has a previous hemoglobin of 9.7. General: This is a 58-year-old female. She is resting quietly in bed. She appears chronically ill, in no acute distress. Skin: Warm and dry. HEENT: Normocephalic, atraumatic. Conjunctiva is pale. She has EVELYN. Mucous membranes are dry. Neck: Supple. Trachea midline. No evidence of JVD. Cardiovascular: She has regular rate and rhythm. She is without murmur or gallop. Lungs: Clear to auscultation bilaterally. Equal excursion on room air. Abdomen: Soft, round, nontender. Positive bowel sounds. Genitourinary: Not inspected. Minimal void without assistance. Extremities: Have no edema. No clubbing or cyanosis. Neurological: Alert and oriented x3. ASSESSMENT AND PLAN: Acute kidney injury. Her creatinine has continued to slowly elevate over the weekend, BUN of 65 with a creatinine of 6.3 today. The patient remains somewhat acidotic with an anion gap of 14. We had discussed with the patient that her complaints of nausea may be associated with uremic symptoms due to elevated BUN and creatinine. We have discussed placement of dialysis tunneled catheter. The patient states understanding with an attempt for dialysis either today or tomorrow. We have also indicated that she may need a renal biopsy during her hospital stay to evaluate possible cause of her acute kidney injury. The patient also states understanding with that. I would like to thank you for allowing us to follow with this patient. Dictated by LETY Jarrett for Viral Hebert MD Face to face encounter, data reviewed, discussed with Levi Vega on 01/03/19. I agree with the above assessment and plan of care. cc: LETY Jarrett MD Amit V. Vora, MD MTDD
[2019-01-03] MEDS: ZOFRAN ODT SL SCH (17:12)
[2019-01-04] MEDS: FLAGYL 250 MG/NS 250 MG/50 ML IVPB IV SCH ×4 (05:05→23:14)
[2019-01-04] MEDS: REGLAN IV SCH ×4 (05:05→20:36)
[2019-01-04] MEDS: NS 1,000 ML IV SCH ×2 (05:08→17:37)
[2019-01-04] MEDS: ZOFRAN ODT SL SCH ×4 (05:09→16:37)
[2019-01-04] MEDS ORDERED: HEPARIN IV PRN (06:17)
[2019-01-04] MEDS ORDERED: TIGHT: 0.2 ML/HR FOR DIALYSIS MISC PRN (06:17)
[2019-01-04] MEDS ORDERED: NS 2,000 ML MISC PRN (06:17)
[2019-01-04 06:18] LABS: HEMATOCRIT 29.8 % (37.0-47.0); HEMOGLOBIN 9.5 g/dL (12.0-16.0); MCH 30.4 PG (27-31); MCHC 31.9 g/dL (33-37); MCV 95.5 FL (81-99); RBC 3.12 XMIL (4.2-5.4); RDW 15.5 % (11.5-14.5); WBC 15.79 X1000 (4.8-10.8)
[2019-01-04] MEDS ORDERED: HEPARIN ONE (06:34)
[2019-01-04] MEDS ORDERED: XYLOCAINE 1%/EPI 1:100,000 ONE (06:34)
[2019-01-04] MEDS ORDERED: NS 250 ML ONE (06:34)
[2019-01-04 06:36] LABS: POTASSIUM 4.5 mmol/L (3.5-5.1)
[2019-01-04 06:37] LABS: ALBUMIN 3.3 g/dL (3.5-5.0); CALCIUM 7.7 mg/dL (8.8-10.2); CREATININE 6.3 mg/dL (0.5-0.9)
[2019-01-04] MEDS ORDERED: XYLOCAINE-MPF 2% ONE (06:37)
[2019-01-04] MEDS ORDERED: DIPRIVAN 1% ONE (07:02)
[2019-01-04] MEDS ORDERED: ZOFRAN ONE ×3 (07:12→14:42)
[2019-01-04] MEDS ORDERED: EPHEDRINE ONE (07:16)
[2019-01-04] MEDS ORDERED: NEO-SYNEPHRINE ONE (07:25)
[2019-01-04] MEDS ORDERED: SODIUM CHLORIDE 0.9% 10 ML ONE (07:25)
--- NOTE | 2019-01-04 09:15 | PROGRESS NOTE ---
DATE: 01/04/2019 SUBJECTIVE: Ms. Morataya had shunt placed in today by Dr. Joya, and she has been getting hemodialysis at the present time. Her vital signs are stable. The blood pressure this morning was 143/73. The lab data continued to show significant renal failure with BUN of 61, creatinine 6.3. She has some leukocytosis. She has been on some IV Rocephin. Overall condition is otherwise unchanged. We will continue with the current management. cc: Dickson Lassiter MD
--- NOTE | 2019-01-04 09:39 | OPERATIVE NOTE ---
PROCEDURE DATE: 01/04/2019 PREOPERATIVE DIAGNOSIS: End-stage renal disease requiring chronic hemodialysis. POSTOPERATIVE DIAGNOSIS: End-stage renal disease requiring chronic hemodialysis. PRINCIPAL PROCEDURE: Right internal jugular PermCath using ultrasound and fluoroscopy. SURGEON: Elysia Joya MD. ANESTHESIA: General in addition to local anesthetic. ESTIMATED BLOOD LOSS: 20 mL. DRAINS: None. INDICATIONS: Tristan Morataya is a 58-year-old black female who has developed end-stage renal disease and will require hemodialysis. Were we were asked to place access. DESCRIPTION OF PROCEDURE: The patient was brought to the operating room, placed supine, received general anesthesia. Her head was turned to the left and her right neck, shoulder, and anterior chest were prepped and draped within the sterile field. We used local anesthetic at our incision sites. She was already on IV antibiotics. We used an Ioban on the skin. I used ultrasound initially base of right neck to identify the right internal jugular vein and I used an 18-gauge needle to access the right internal jugular vein on the first stick with the help of ultrasound. A guidewire was placed through this needle into the right side of the heart. I checked its position using fluoroscopy. I made a counterincision on the anterior right chest and I used a precurved 19 cm in total length PermCath. I used a blunt tunneler and I tunneled this catheter from the chest incision to the neck incision. I placed sequential dilators over the guidewire and then I used a dilator and sheath over the guidewire. The dilator and guidewire were removed and through the sheath, we placed the distal end of our pre curved PermCath and directed it into the superior vena cava. The sheath was peeled away and I checked its position using fluoroscopy. It was in good position and functioned well and we flushed it with heparin saline. The catheter was secured at its exit site with two 2-0 nylon stitches and I closed the small incision at the base of right neck with a 4-0 Monocryl subcuticular stitch. Steri-Strips applied to the neck incision and a dry dressing and OpSite to the exit site on the anterior right chest. She tolerated the procedure well. Plans are for her to go the recovery room and then be readmitted to the hospital. cc: MD Dickson Lopez, MD
[2019-01-04] MEDS: CATAPRES PO SCH ×3 (10:50→20:38)
[2019-01-04] MEDS: LOPRESSOR PO SCH ×2 (10:51→20:37)
[2019-01-04] MEDS: APRESOLINE PO SCH ×4 (10:51→20:38)
[2019-01-04] MEDS: KLONOPIN PO SCH ×2 (10:51→20:40)
[2019-01-04] MEDS: NEURONTIN PO SCH ×4 (10:51→20:38)
[2019-01-04] MEDS: NORVASC PO SCH (10:51)
[2019-01-04] MEDS: ROCEPHIN 1 GM in NS 50 ML IV SCH (11:27)
[2019-01-04] MEDS: NORCO-7.5 PO PRN ×2 (14:30→20:37)
--- NOTE | 2019-01-04 19:10 | NEPHROLOGY PROGRESS NOTE ---
DATE: 01/04/2019 SUBJECTIVE: Ms. Morataya has just returned from surgery. She is currently in recovery. She denies any pain or discomfort. OBJECTIVE: Vital Signs: Temperature 98.9 degrees, blood pressure 128/55, heart rate 57, respirations 18. She is currently on room air. Last recorded saturation 96%. She has had 1406 in. She has had 0 recorded out to void, though, she states she has voided during the night. LABORATORY DATA: Sodium is 140, potassium 4.5, chloride 112, CO2 is down to 11, her BUN is 61. Her creatinine is 6.3, glucose of 94. The patient has an anion gap of 17, her calcium is 7.7, phosphorus is 6, her albumin is 3.3. White count is 15.79, hemoglobin 9.5, hematocrit 29.8 with a platelet count of 458,000. PHYSICAL EXAMINATION: General: This is a 58-year-old female. She is resting quietly in on a stretcher. She is post recovery for tunnel dialysis catheter placed to the right chest wall. She is in no acute distress. HEENT: Normocephalic, atraumatic. Conjunctiva is pale. She has EVELYN. Mucous membranes are dry. Neck: Supple trachea midline. No evidence of JVD. Cardiovascular: She is regular rate and rhythm. She is without murmur or gallop. Lungs: Clear to auscultation bilaterally. Equal excursion on room air. Abdomen: Large, round, soft, nontender. Positive bowel sounds. Genitourinary: Not inspected. The patient has been voiding. We have requested previously that she keep a strict I and O. Extremities: Have no edema, no clubbing or cyanosis. Integumentary: Patient has a new dialysis tunnel catheter to the right chest wall. This is dry and intact. Neurological: Alert and oriented x2. Patient is sleepy with post recovery. ASSESSMENT AND PLAN: 1. Acute kidney injury. The patient's BUN and creatinine have not moved in the last 72 hours. We have had a placement of a dialysis tunneled catheter. We will start dialysis today. She is to be placed on a 2K bath. We will dialyze her for 2 hours. We will attempt to pull 1 L of ultrafiltration with plan for dialysis in the a.m. We will plan for a possible renal biopsy tomorrow after her dialysis treatment in the a.m. 2. Electrolytes and acid-base balance. These are acceptable. 3. Anemia. This is low but stable. 4. Acute kidney injury with intractable nausea and vomiting more than likely secondary to uremic symptoms with assistance with new start on dialysis. I would to thank you for allowing us to follow with this patient. Dictated by LETY Jarrett for Viral Hebert MD Face to face encounter, data reviewed, discussed with Levi Vega on 01/04/19. I agree with the above assessment and plan of care. cc: LETY Jarrett MD Amit V. Vora, MD MTDD
[2019-01-05] MEDS: ZOFRAN IV PRN (01:45)
[2019-01-05] MEDS: NORCO-7.5 PO PRN ×3 (02:47→20:28)
[2019-01-05] MEDS: REGLAN IV SCH ×5 (04:51→22:44)
[2019-01-05] MEDS: FLAGYL 250 MG/NS 250 MG/50 ML IVPB IV SCH ×4 (04:52→22:44)
[2019-01-05 05:55] LABS: HEMATOCRIT 29.1 % (37.0-47.0); HEMOGLOBIN 9.5 g/dL (12.0-16.0); MCH 29.5 PG (27-31); MCHC 32.6 g/dL (33-37); MCV 90.4 FL (81-99); MPV 8.5 FL (7.4-10.4); RBC 3.22 XMIL (4.2-5.4); RDW 14.9 % (11.5-14.5); WBC 13.21 X1000 (4.8-10.8)
[2019-01-05] MEDS ORDERED: HEPARIN IV PRN (06:08)
[2019-01-05] MEDS ORDERED: NS 2,000 ML MISC PRN (06:08)
[2019-01-05] MEDS ORDERED: TIGHT: 0.2 ML/HR FOR DIALYSIS MISC PRN (06:08)
[2019-01-05 06:31] LABS: ALBUMIN 3.3 g/dL (3.5-5.0); CALCIUM 7.1 mg/dL (8.8-10.2); CREATININE 4.2 mg/dL (0.5-0.9); POTASSIUM 3.4 mmol/L (3.5-5.1)
[2019-01-05] MEDS: ZOFRAN ODT SL SCH ×3 (08:55→17:36)
[2019-01-05] MEDS: COZAAR PO SCH ×2 (08:55→13:24)
[2019-01-05] MEDS: NORVASC PO SCH ×2 (08:55→13:17)
[2019-01-05] MEDS: NEURONTIN PO SCH ×4 (08:56→22:44)
[2019-01-05] MEDS: COREG PO SCH ×2 (08:56→22:43)
[2019-01-05] MEDS: KLONOPIN PO SCH ×2 (08:56→20:28)
[2019-01-05] MEDS: CATAPRES PO SCH ×3 (08:57→22:44)
--- NOTE | 2019-01-05 09:08 | PROGRESS NOTE ---
DATE: 01/05/2019 SUBJECTIVE: Ms. Morataya is doing better. She is getting dialysis today. She says she is going to go through probably the biopsy today, a biopsy of the kidney. LABORATORY DATA: Today reveal white count of 13.21, hemoglobin 9.5, potassium is 3.4. However, BUN has gone down to 33 from 61 and creatinine from 6.3 to 4.2, which is a significant improvement. Her sugar was 134. Overall condition is unchanged. We will continue with the current management. cc: Dickson Lassiter MD
[2019-01-05] MEDS: APRESOLINE PO SCH ×2 (13:17→22:44)
[2019-01-05] MEDS: ROCEPHIN 1 GM in NS 50 ML IV SCH (13:18)
--- NOTE | 2019-01-05 15:33 | NEPHROLOGY PROGRESS NOTE ---
DATE: 01/05/2019 Date seen: 01/05/2019. Time Seen: 0705. SUBJECTIVE: Mrs. Morataya is resting quietly in bed. She is nauseated. She has received Zofran during the night though she denied nausea or emesis during dialysis yesterday or within an hour to two after returning after her treatment for 2 hours. OBJECTIVE: Vital Signs: Temperature 98.9 degrees, blood pressure 196/87, heart rate 82 respirations 16. She is on room air last recorded saturation 98%. She has had 1551 out. She has had 1900 out with 1 L on dialysis. LABS: Sodium is 139, potassium 3.4, chloride 106, CO2 20, BUN 33, creatinine 4.2, glucose is 134. Her anion gap is 20, her calcium is 7.1, phosphorus 4, albumin 3.3. White count 13.21, hemoglobin 9.5, hematocrit 29.1, with a platelet count of 449,000. PHYSICAL EXAMINATION: General: This is a 58-year-old female. She is resting quietly in bed. She appears moderately sick secondary to having chronic nausea and vomiting throughout the night. Skin: Warm and dry. HEENT: Normocephalic, atraumatic. Conjunctivae pale. She has EVELYN. Mucous membranes are dry. Neck: Supple. Trachea midline. No JVD. Cardiovascular: She is regular rate and rhythm without murmur or gallop. Lungs: Clear to auscultation bilaterally. Equal excursion on room air. Abdomen: Soft, large, round, nontender. Positive bowel sounds. Genitourinary: Not inspected. Patient has been voiding adequate amounts with dialysis assist. Extremities: Has no edema. No clubbing or cyanosis. Neurological: She is alert and oriented x3. Integumentary: Patient has a dialysis tunneled catheter to the right upper chest wall, dry and intact. ASSESSMENT AND PLAN: 1. Acute kidney injury. Patient's BUN and creatinine have improved status post hemodialysis treatment for 2 hours yesterday. We will plan for dialysis again this a.m. After that she is scheduled for a renal biopsy to be performed tomorrow. The patient remains NPO after midnight. 2. Electrolytes and acid-base balance. These are acceptable. 3. Anemia. This remains low but stable. 4. Continued nausea and vomiting more than likely secondary to uremic symptoms. She has been on dialysis for 2 hours yesterday. We will plan for dialysis again today. 5. Hypertension. We will review patient's medications in an attempt to get her blood pressure down for her biopsy this afternoon. I would like to thank you for allowing us to follow with this patient. Dictated by LETY Jarrett for Viral Hebert MD Face to face encounter, data reviewed, discussed with Levi Vega on 01/05/19. I agree with the above assessment and plan of care. cc: LETY Jarrett MD Amit V. Vora, MD [facility]ENTER[facility]ionel
[2019-01-06] MEDS: NORCO-7.5 PO PRN ×4 (04:00→23:18)
[2019-01-06] MEDS: REGLAN IV SCH ×4 (05:39→23:00)
[2019-01-06] MEDS: FLAGYL 250 MG/NS 250 MG/50 ML IVPB IV SCH ×4 (05:39→23:00)
[2019-01-06] MEDS: ZOFRAN ODT SL SCH ×3 (06:57→17:01)
[2019-01-06 07:02] LABS: CREATININE 3.3 mg/dL (0.5-0.9); POTASSIUM 3.7 mmol/L (3.5-5.1)
[2019-01-06 07:03] LABS: ALBUMIN 3.3 g/dL (3.5-5.0); CALCIUM 7.6 mg/dL (8.8-10.2); PHOSPHORUS 3.5 mg/dL (2.7-4.5)
[2019-01-06 07:19] LABS: INR 0.97; PROTIME 13.7 Seconds (11.0-16.0)
[2019-01-06 07:20] LABS: PTT 34.7 Seconds (22.3-41.8)
[2019-01-06] MEDS: COREG PO SCH ×2 (08:10→20:35)
[2019-01-06] MEDS: NORVASC PO SCH (08:10)
[2019-01-06] MEDS: APRESOLINE PO SCH ×2 (08:10→20:36)
[2019-01-06] MEDS: CATAPRES PO SCH ×3 (08:10→20:36)
[2019-01-06] MEDS: COZAAR PO SCH (08:10)
[2019-01-06] MEDS: ROCEPHIN 1 GM in NS 50 ML IV SCH ×2 (08:11→09:49)
[2019-01-06] MEDS: KLONOPIN PO SCH ×2 (08:19→20:36)
[2019-01-06] MEDS: NEURONTIN PO SCH ×4 (09:49→20:35)
--- NOTE | 2019-01-06 09:58 | Diag Imaging Result Doc PS360 ---
EXAM: US RENAL BIOPSY W S/I 01/06/2019 HISTORY: CHINYERE unknown cause TECHNIQUE: Renal biopsy under ultrasound guidance of the right kidney COMMENT: The risks and benefits of procedure including the possibility of bleeding infection or reaction to lidocaine were discussed with the patient and she agreed to the procedure. Following sterile preparation the skin and administration of 1% lidocaine to the skin and deeper soft tissues, an 18-gauge coaxial Temno core biopsy needle was employed to obtain six cores from the posterior cortex of the lower pole of the right kidney. There are no immediate complications. The specimen was judged to be adequate by the pathologist. IMPRESSION: Successful ultrasound-guided right renal biopsy. Electronically signed by Zev Gill 01/06/2019 9:55 AM
--- NOTE | 2019-01-06 11:10 | PROGRESS NOTE ---
DATE: 01/06/2019 SUBJECTIVE: Ms. Rafia Dye had dialysis yesterday, and it has certainly helped bring the BUN and creatinine down to 15 and 3.3 respectively. Her sugar was 101. Her blood cultures have been negative so far. The vital signs are stable. Blood pressure was 170/71. General condition is unchanged. She is going to go through the kidney biopsy today. Thereafter, she probably will get dialysis tomorrow. cc: Dickson Lassiter MD
--- NOTE | 2019-01-06 15:41 | NEPHROLOGY PROGRESS NOTE ---
DATE: 01/06/2019 Date Seen: 01/06/2019 Time Seen: 719 SUBJECTIVE: Ms. Morataya is resting quietly in bed. Head of the bed is slightly elevated. She is n.p.o. She is waiting to go for her renal biopsy. OBJECTIVE: Vital Signs: Temperature 98.5 degrees, blood pressure 145/100, heart rate 82 respirations 17. She is on room air last recorded saturation is 98%. She has had 57 mL in 2 L out per dialysis and with small emesis. LABORATORY DATA: Her most recent labs: Her sodium is 139, potassium 3.7, chloride 101, CO2 23, BUN is 15, creatinine is 3.3, glucose is 101. The patient's anion gap is 15. Her calcium is 7.6, phosphorus 3.5, albumin of 3.3. White count previously completed was stable. Patient's hemoglobin this a.m. is 9.7. The patient had a pro-time 13.7, INR 0.97, PTT 34.7. PHYSICAL EXAMINATION: General: This is a 58-year-old female resting quietly in bed. She appears chronically ill in no acute distress. Skin: Warm and dry. HEENT: Normocephalic, atraumatic. Conjunctivae pale. She has PERRL. Mucous membranes are dry. Neck: Supple. Trachea midline. No JVD. Cardiovascular: She is regular rate and rhythm she is without murmur or gallop. Lungs: Clear to auscultation bilaterally. Equal excursion. She is on room air. Abdomen: Large, round, soft, nontender. Positive bowel sounds. Genitourinary: Not inspected. Patient has been voiding adequate amounts with assistance from dialysis. Extremities: Have no edema. No clubbing or cyanosis. Neurological: Alert and oriented x3. Integumentary: Dialysis tunnel catheter to the right upper chest wall dry and intact. ASSESSMENT AND PLAN: 1. Acute kidney injury. The patient's BUN and creatinine have improved with dialysis. We will hold dialysis today. She has been NPO since midnight. We are planning an ultrasound guided renal biopsy this a.m. CT biopsy was canceled yesterday. The patient has had explanation of procedure along with possible complications. The patient states understanding. is at the bedside. We will proceed with plan for dialysis in the a.m. 2. Electrolytes, acid-base balance. These are acceptable. 3. Anemia. Hemoglobin of 9.7. We will evaluate this q.6 hours until a.m. 4. Chronic nausea and vomiting. Again with assistance from dialysis, suspect this is uremic symptoms. 5. Hypertension. We have indicated the patient is to get her medications this a.m. including her Klonopin prior to going to her biopsy with an elevated blood pressure. I would to thank you for allowing us to follow with this patient. Dictated by LETY Jarrett for Viral Hebert MD Data reviewed, discussed with Levi Vega on 01/06/19. I agree with the above assessment and plan of care. cc: LETY Jarrett MD Amit V. Vora, MD [facility]ENTERLionel
[2019-01-07] MEDS: FLAGYL 250 MG/NS 250 MG/50 ML IVPB IV SCH ×2 (05:58→13:00)
[2019-01-07] MEDS: NORCO-7.5 PO PRN ×2 (05:59→13:38)
[2019-01-07] MEDS: REGLAN IV SCH ×2 (05:59→12:31)
[2019-01-07] MEDS: ZOFRAN ODT SL SCH ×2 (06:00→12:38)
[2019-01-07] MEDS ORDERED: TIGHT: 0.2 ML/HR FOR DIALYSIS MISC PRN (06:39)
[2019-01-07] MEDS ORDERED: HEPARIN IV PRN (06:39)
[2019-01-07] MEDS ORDERED: NS 2,000 ML MISC PRN (06:39)
[2019-01-07 07:52] LABS: CREATININE 3.9 mg/dL (0.5-0.9); POTASSIUM 3.3 mmol/L (3.5-5.1)
[2019-01-07 07:53] LABS: ALBUMIN 3.2 g/dL (3.5-5.0); CALCIUM 7.5 mg/dL (8.8-10.2); PHOSPHORUS 3.4 mg/dL (2.7-4.5)
[2019-01-07] MEDS: ROCEPHIN 1 GM in NS 50 ML IV SCH (12:23)
[2019-01-07 12:33] VITALS: BP 166/109
[2019-01-07] MEDS: COREG PO SCH (12:33)
[2019-01-07] MEDS: KLONOPIN PO SCH (12:34)
[2019-01-07] MEDS: COZAAR PO SCH (12:34)
[2019-01-07] MEDS: NORVASC PO SCH (12:35)
[2019-01-07] MEDS: APRESOLINE PO SCH (12:35)
[2019-01-07] MEDS: NEURONTIN PO SCH ×2 (12:36→12:37)
[2019-01-07] MEDS: CATAPRES PO SCH ×2 (12:36→13:36)
--- NOTE | 2019-01-07 21:24 | NEPHROLOGY PROGRESS NOTE ---
DATE: 01/07/2019 SUBJECTIVE: Patient is sitting up in bed. She is waiting to go to dialysis. OBJECTIVE: Vital Signs: Temperature 99 degrees, pulse 79, respiratory rate 18, blood pressure 165/75. Intake 1 L, output not measured. General: Middle-aged female resting in bed in no acute distress. HEENT: Normocephalic, atraumatic. Conjunctivae are pale. Oral mucosa moist. Neck: Supple without JVD. Cardiovascular: Regular rate and rhythm. No murmur or gallop. Pulmonary: Equal excursion. Clear bilaterally. Abdomen: Soft, positive bowel sounds. Genitourinary: Not inspected. Extremities: No clubbing, cyanosis, or edema. Integumentary: Skin is pale, warm, and dry. Tunnel dialysis catheter site clean, dry, and intact. LABORATORY DATA: Pending. ASSESSMENT AND PLAN: 1. Acute kidney injury without recovery. Plan to dialyze today on a 2 K bath/UF to the last dry weight/4-hour treatment. She can be discharged at the discretion of the primary after dialysis. We will plan for her to have a next treatment next week at the outpatient clinic. This information has been given to the patient, which clinic, what day and what time to show up. 2. Hypertension. Continue home medications. Dictated by LETY Dow for Vrial Hebert MD Face to face encounter, data reviewed, discussed with Dina Hale on 01/07/19. I agree with the above assessment and plan of care. cc: MD Dickson Quiles MD [facility]
--- NOTE | 2019-01-08 13:55 | DISCHARGE SUMMARY ---
ADMISSION DATE: 12/30/2018 DISCHARGE DATE: 01/07/2019 HISTORY OF PRESENT ILLNESS: Ms. Morataya who is a 58-year-old female was admitted for intractable nausea, vomiting, diarrhea, acute kidney injury, leukocytosis. DIAGNOSTIC DATA: Laboratory data in the hospital initial white count was 15.79, hemoglobin was 9.5, hematocrit 29.8. INR was 0.97. Initial chemistry revealed potassium of 5.5, BUN of 77, creatinine 7.7, and BUN and creatinine stayed high for several days 2. After we decided to dialyze the BUN and creatinine came down. The last BUN was 19, creatinine was 3.9, potassium was 3.3. She had dialysis. After that albumin level was 3.2. Blood sugar was 139- 148. Urinalysis was negative. Acetone level was negative. Other data included abdominal x-ray, which showed constipation, otherwise it was unremarkable. She also had abdomen and pelvis CT scan which revealed an unremarkable urinary bladder. She had a hysterectomy. There was some diverticulitis in the sigmoid colon. No evidence of abdominal aortic aneurysm. She also had a kidney biopsy done bythe radiologist COURSE IN THE HOSPITAL: She was given IV antibiotics, namely Rocephin, which was continued. She also had a nephrology consult with Dr. Hebert, who treated acute injury initially with medical treatment later on decided about dialysis. She had at least 4 dialysis settings here. The catheters were placed by Dr. Joya. She had a biopsy done. She will be continuing all her antihypertension medications and she will be followed by Dr. Hebert and I will also see her in the office in about 2 weeks. FINAL DIAGNOSES: 1. Acute renal failure. 2. Uncontrolled hypertension. 3. Diverticulitis. cc: MD ELY Zacarias
== END 2019-01-07 14:00 | disposition home or self-care (01) | DRG 674 ==
LOC: ED 16:38 → 4N 21:28 → SUATTDRO 21:28
PROVIDERS: ADMIT Internal Medicine; ATTEND Internal Medicine
CPT/HCPCS: 50200; 74022; 74176; 76942; 77001; 80048; 80053; 80069; 81001; 82009; 82140; 82550; 82948; 83605; 83690; 84443; 85018; 85025; 85027; 85610; 85730; 87040; 87205; 87324; 88300; 89055; 93005; 96361; 96365; 96375; 96376; 99285; A9270; C1750; J0696; J1644; J2370; J2405; J2765; J7030; J7050; S0030; XXXXX